=== PATIENT | female | born 1980 | race African-American/Black ===

== ENCOUNTER 2019-11-24 02:14 | Emergency (ER) | payer OTHER, SELFPAY ==
[2019-11-24 02:19] VITALS: BP 138/88; PULSE 87; RESP 20; TEMP 36.7; O2SAT 100
[2019-11-24 03:02] LABS: Basophils Percent Auto 0.5 % (0.2-1.2); Eosinophils Percent Auto 0.5 % (0-4.4); Hematocrit 40.2 % (37.0-47.0); Hemoglobin 12.6 g/dL (12.0-15.0); Immature Granulocyte Absolute 0.01 K/mm3 (0.00-0.031); Immature Granulocyte Percent A 0.2 % (0-0.5); Lymphocytes Percent Auto 31.8 % (18.3-44.2); Mean Corpuscular HGB Conc 31.3 g/dl (32-36); Mean Corpuscular Hemoglobin 26.9 pg (26-34); Mean Corpuscular Volume 85.9 fl (80-100); Mean Platelet Volume 10.8 fl (7.4-10.4); Monocytes Absolute Auto 0.5 K/mm3 (0.1-0.6); Monocytes Percent Auto 7.7 % (2.6-8.5); Neutrophils Absolute Auto 3.5 K/mm3 (1.3-6.7); Neutrophils Percent Auto 59.3 % (45.5-73.1); Platelet Count Result 237 k/mm3 (150-375); Red Blood Count 4.68 M/mm3 (4.2-5.4); Red Cell Distribution Width 14.4 % (11.5-14.5)
[2019-11-24 03:08] LABS: Add Urine Microscopic? YES; Appearance Urine Clear (Clear); Bacteria Urine Trace /hpf; Bilirubin Urine Negative (Negative); Blood Urine Negative (Negative); Color Urine Yellow (Yellow); Glucose Urine UA Negative (Negative); Ketones Urine 1+ mg/dL (Negative); Leukocyte Esterase Ur Trace LEU/UL (Negative); Mucus Urine Heavy /lpf; Nitrate Urine Negative (Negative); Protein Urine Negative (Negative); RBC Urine 0-2 /hpf (0-2); Squamous Epithelial Cell Urine Many /hpf (Few); Urobilinogen Urine Negative mg/dL (<2.0); WBC Urine 0-3 /hpf
[2019-11-24 03:14] LABS: Alanine Aminotransferase 14 U/L (4-35); Albumin Level 4.5 g/dL (3.5-5.1); Alkaline Phosphatase 64 U/L (38-126); Aspartate Amino Transferase 22 U/L (14-36); Blood Urea Nitrogen 4 mg/dL (7-17); Calcium 9.5 mg/dL (8.4-10.2); Carbon Dioxide 28 mmol/L (22-30); Chloride 101 mmol/L (98-107); Estimated CRCL calculation 118 ml/min; Estimated Glomerular Filt Rate > 60; Glucose 87 mg/dL (65-105); Lipase 58 U/L (23-300); Potassium 3.5 mmol/L (3.4-5.0); Sodium 137 mmol/L (137-145)
--- NOTE | 2019-11-24 03:23 | ED.NAVMDI ---
HPI - Nausea/Vomiting/Diarrhea General Chief complaint: Abdominal Pain Stated complaint: n/v Source: patient Mode of arrival: ambulatory Limitations: no limitations History of Present Illness HPI Narrative: Patient is a 39-year-old female who presents to the emergency department with complaint of nausea and vomiting. 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 Patient was prescribed tetracycline and Flagyl as well as a proton pump inhibitor. Patient states her heart rate goes up when she takes the antibiotics and she has had nausea and vomiting and unable to keep down food and has not been able to take her antibiotics. Patient is complaining of abdominal and back pain as well. MD elicited complaint: nausea and vomiting Onset (ago): day(s) Related Data Allergies Allergy/AdvReac Type Severity Reaction Status Date / Time metoclopramide [From Reglan] Allergy Intermediate Anxiety Verified 11/24/19 02:27 acetaminophen [From [place]] AdvReac Intermediate Nausea Verified 11/24/19 02:27 hydrocodone [From [place]] AdvReac Intermediate Nausea Verified 11/24/19 02:27 Review of Systems Review of Systems: All systems reviewed & are unremarkable except as noted in HPI and below Gastrointestinal: Gastrointestinal: Reports abdominal pain, Reports nausea and Reports vomiting PMFSH Past Medical History Medical History (Updated 11/24/19 @ 05:05 by Cristina Corona MD) GERD (gastroesophageal reflux disease) Helicobacter pylori (H. pylori) Surgical History Surgical History (Updated 11/24/19 @ 03:25 by Cristina Corona MD) History of esophagogastroduodenoscopy (EGD) Social History Social History (Updated 11/24/19 @ 03:25 by Cristina Corona MD) Smoking status: Never smoker Alcohol intake: never Exam Const: General: cooperative, no acute distress and alert Nutritional Appearance: well nourished Orientation/consciousness: patient oriented x3 Limitations: no limitations Resp: Effort & Inspection: normal respiratory effort Auscultation: clear to auscultation bilaterally Cardio: Rate: regular rate Rhythm: regular rhythm GI: GI Palp: Yes Soft to palpation and No Tenderness to palpation present (GI) Auscultation: normal bowel sounds Skin: General skin exam: normal color Neuro: General: patient oriented x3 Cognition (Neuro): normal cognition Speech: normal speech Extrem: General: normal to inspection, full ROM and no clubbing, cyanosis or edema Psych: Mental Status: mental status grossly normal Affect: normal affect Attitude: cooperative Course Course Emergency Course: Patient labs fairly unremarkable. Nothing to suggest severe dehydration at this time. Vital signs stable. Patient feeling better after fluids and medications. Patient only complaining of bloating on reevaluation. Will prescribe GI medications for symptom management. Advised GI follow-up. Vital Signs Vital signs: Vital Signs Temperature 98.0 F 11/24/19 02:19 Pulse Rate 87 11/24/19 02:19 Respiratory Rate 11/24/19 02:19 Blood Pressure 138/88 11/24/19 02:19 Pulse Oximetry 100 11/24/19 02:19 Temperature 98.0 F 11/24/19 02:19 Pulse Rate 79 11/24/19 03:31 Respiratory Rate 11/24/19 02:19 Blood Pressure 134/95 H 11/24/19 03:31 Pulse Oximetry 100 11/24/19 02:19 MDM - Nausea/Vomiting/Diarrhea Lab Data Attestation: I reviewed the patient's lab results. Result diagrams: 11/24/19 02:55 11/24/19 02:55 Labs: Lab Results 11/24/19 11/24/19 11/24/19 Range/Units 02:55 02:55 02:55 WBC 6.0 (4.5-10.0) K/mm3 RBC 4.68 (4.2-5.4) M/mm3 Hgb 12.6 (12.0-15.0) g/dL Hct 40.2 (37.0-47.0) % MCV 85.9 (80-100) fl MCH 26.9 (26-34) pg MCHC 31.3 L (32-36) g/dl RDW 14.4 (11.5-14.5) % Plt Count 237 (150-375) k/mm3 MPV 10.8 H (7.4-10.4) fl Immature Gran % (Auto) 0.2 (0-0.5)
[2019-11-24 03:31] VITALS: BP 129/89; BP 131/98; BP 134/95; PULSE 74; PULSE 78; PULSE 79
[2019-11-24] MEDS: LACTATED RINGERS 1,000 ML 999 ML IV CONT (03:34)
[2019-11-24] MEDS: PANTOPRAZOLE SODIUM IV 40 MG VIAL IV PUSH (03:35)
[2019-11-24] MEDS: ONDANSETRON INJ 4 MG/2 ML VIAL IV PUSH (03:35)
[2019-11-24 05:32] VITALS: BP 136/98; PULSE 74; RESP 18; O2SAT 100
== END 2019-11-24 05:34 | disposition home or self-care (01) ==
PROVIDERS: Emergency Provider Emergency Medicine
DX: R11.2 Nausea with vomiting, unspecified (principal); R10.13 Epigastric pain; K21.9 Gastro-esophageal reflux disease without esophagitis
CPT/HCPCS: 36415; 80053; 81001; 81025; 83690; 85025; 96361; 96374; 96375; 99284; A9270; C9113; J2405; J7120

== ENCOUNTER 2020-02-10 12:40 | Emergency (ER) | payer OTHER, SELFPAY ==
--- NOTE | ~2020-02-10 | CT_ITS ---
EXAMINATION: CT abdomen pelvis w con INDICATION: Epigastric abdominal pain TECHNIQUE: Computed tomographic images of the abdomen and pelvis were obtained after the administrati on of 100 cc of Omnipaque 350 intravenous contrast. The dose-length product (DLP) was 235.92 mGy-cm. Automated exposure control and iterative reconstruction technique were employed. COMPARISON: None available FINDINGS: The lung bases are clear. The heart size is normal. Bilateral breast implants are noted. He terogeneous enhancement of the liver likely related to phase of contrast. There is a 3.9 x 3.1 cm hyp erenhancing mass of liver segment V which appears to contain central hypodensity. The spleen, pancrea s, gallbladder, and adrenal glands are normal. The kidneys are unremarkable. No pathologically enlarg ed abdominal or pelvic lymph nodes are identified. There is no free intraperitoneal gas or evidence o f bowel obstruction. The appendix is normal. There is widespread nodular soft tissue density involvin g the bilateral gluteal subcutaneous tissues, likely inflammation or scarring. IMPRESSION: 1. No CT correlate for the patient's symptoms. 2. Hyperenhancing mass of the right hepatic lobe which is likely benign in the absence of known malig douglas, possibly reflecting focal nodular hyperplasia or adenoma. Recommend correlation with any prior outside hospital imaging. If none is available, follow-up by CT or MRI without and with contrast in six months is recommended. Reviewed, dictated and finalized at location A. IMPRESSION: 1. No CT correlate for the patient's symptoms. 2. Hyperenhancing mass of the right hepatic lobe which is likely benign in the absence of known malignancy, possibly reflecting focal nodular hyperplasia or a denoma. Recommend correlation with any prior outside hospital imaging. If none is available, follow-up by CT or MRI without and with contrast in six months is recommended.
[2020-02-10 12:46] VITALS: BP 111/79; PULSE 76; RESP 15; TEMP 36.9; O2SAT 99
[2020-02-10 13:09] LABS: Basophils Percent Auto 0.7 % (0.2-1.2); Eosinophils Percent Auto 1.1 % (0-4.4); Hematocrit 34.6 % (37.0-47.0); Hemoglobin 11.1 g/dL (12.0-15.0); Lymphocytes Absolute Auto 1.34 K/mm3 (0.9-3.2); Lymphocytes Percent Auto 47.9 % (18.3-44.2); Mean Corpuscular HGB Conc 32.1 g/dl (32-36); Mean Corpuscular Hemoglobin 27.5 pg (26-34); Mean Corpuscular Volume 85.6 fl (80-100); Mean Platelet Volume 10.4 fl (7.4-10.4); Monocytes Absolute Auto 0.2 K/mm3 (0.1-0.6); Monocytes Percent Auto 8.6 % (2.6-8.5); Neutrophils Absolute Auto 1.2 K/mm3 (1.3-6.7); Neutrophils Percent Auto 41.7 % (45.5-73.1); Platelet Count Result 190 k/mm3 (150-375); Red Blood Count 4.04 M/mm3 (4.2-5.4); Red Cell Distribution Width 13.6 % (11.5-14.5); White Blood Count 2.8 K/mm3 (4.5-10.0)
[2020-02-10 13:17] LABS: Potassium 3.5 mmol/L (3.4-5.0)
[2020-02-10 13:20] LABS: Ethanol < 10 mg/dL (<10)
[2020-02-10 13:21] LABS: Alanine Aminotransferase 16 U/L (4-35); Albumin Level 3.5 g/dL (3.5-5.1); Alkaline Phosphatase 44 U/L (38-126); Aspartate Amino Transferase 18 U/L (14-36); Bilirubin,Total 1.1 mg/dL (0.2-1.3); Blood Urea Nitrogen 10 mg/dL (7-17); Calcium 8.9 mg/dL (8.4-10.2); Carbon Dioxide 24 mmol/L (22-30); Chloride 107 mmol/L (98-107); Estimated CRCL calculation 98 ml/min; Estimated Glomerular Filt Rate > 60; Glucose 97 mg/dL (65-105); Lipase 26 U/L (23-300); Sodium 137 mmol/L (137-145)
--- NOTE | 2020-02-10 13:35 | ED.ABDPAIN ---
HPI - Abdominal Pain General Chief Complaint: Abdominal Pain Stated Complaint: nausa/ bloating/ epigastric pain Time Seen by Provider: 02/10/20 13:16 Source: patient History of Present Illness HPI narrative: 39 years old -[place] female complaining of upper abdominal pain for the last 2 months, was seen by her lab aid recently, had EGD which showed gastritis, patient started on Protonix. Patient did not take the prescription of Protonix because it have a lot of side effects. Patient been to many emergency rooms in the last few weeks last one was [place] and started on Nexium which did not start because of the side effects. Currently complaining of epigastric pain, bloating. Patient declined to take Reglan or GI cocktail because make her feel worse. Patient reports having a lot of depression lately and been losing weight. Denies any suicidal or homicidal ideation. Patient had a diagnosis of H. pylori, and was treated recently. Related Data Allergies Allergy/AdvReac Type Severity Reaction Status Date / Time metoclopramide [From Reglan] Allergy Intermediate Anxiety Verified 11/24/19 02:27 acetaminophen [From [place]] AdvReac Intermediate Nausea Verified 11/24/19 02:27 hydrocodone [From [place]] AdvReac Intermediate Nausea Verified 11/24/19 02:27 Review of Systems Review of Systems: Narrative: CONSTITUTIONAL: Denies fever, chills, or sweats. EYES: Denies visual changes, redness, or discharge. ENT: Denies rhinorrhea, congestion, sore throat, or otalgia. CARDIOVASCULAR: Denies chest pain, palpitations, or edema. RESPIRATORY: Denies cough or dyspnea. GASTROINTESTINAL: Denies abdominal pain, nausea, vomiting, or diarrhea. GENITOURINARY: Denies dysuria or hematuria. SKIN: Denies rash or itching. MUSCULOSKELETAL: Denies back pain, joint pain, or myalgia. NEUROLOGIC: Denies headache, numbness, or weakness. PSYCHIATRIC: Denies anxiety or depression. [facility] Past Medical History Medical History GERD (gastroesophageal reflux disease) Helicobacter pylori (H. pylori) Surgical History Surgical History History of esophagogastroduodenoscopy (EGD) Social History Social History Smoking status: Never smoker Alcohol intake: never Gender identity (if verbalized by the patient): Female Exam Narrative: Exam Narrative: General appearance: Well-developed, looks depressed, does not look in pain Skin: Normal color Head: Normocephalic, nontraumatic Eyes: Clear conjunctiva ENT: Oropharynx normal, ears normal, nose normal Neck: Supple, nontender Chest and respiratory: Airway patent, no respiratory distress, no accessory muscle use Heart: Regular rate/rhythm Abdomen: Soft, mild tenderness epigastric area., no organomegaly, quiet bowel sounds Vascular: Normal peripheral pulses, normal capillary refill. Musculoskeletal: Normal range of motion, nontender back Neurologic: Alert and oriented ?3, [employer] is normal as tested, no gross motor deficit Course Course Emergency Course: Stable Reevaluation(s) Reevaluation #1: Currently patient feeling much better, patient was notified about the presence of hepatic mass and the seriousness of early follow-up with her lab aid for further evaluation. Patient received a copy of the CAT scan report at the time of discharge. Vital Signs Vital signs: Vital Signs Temperature 36.9 C 02/10/20 12:46 Pulse Rate 76 02/10/20 12:46 Respiratory Rate 15 02/10/20 12:46 Blood Pressure 111/79 02/10/20 12:46 Pulse Oximetry 99 02/10/20 12:46 Temperatu
[2020-02-10 13:50] LABS: Thyroid Stimulating Hormone 0.591 uIU/mL (0.465-4.680)
[2020-02-10] MEDS: SODIUM CHLORIDE 0.9% IV 1,000 ML 999 ML IV CONT (13:52)
[2020-02-10 14:03] LABS: Add Urine Microscopic? YES; Appearance Urine Clear (Clear); Bacteria Urine Trace /hpf; Bilirubin Urine Negative (Negative); Blood Urine Negative (Negative); Color Urine Yellow (Yellow); Glucose Urine UA Negative (Negative); Ketones Urine Trace mg/dL (Negative); Leukocyte Esterase Ur Trace LEU/UL (Negative); Mucus Urine Heavy /lpf; Nitrate Urine Negative (Negative); Protein Urine Negative (Negative); RBC Urine 0-2 /hpf (0-2); Specific Grav Ur 1.023 (1.001-1.035); Squamous Epithelial Cell Urine Few /hpf (Few); Urobilinogen Urine Negative mg/dL (<2.0); WBC Urine 16-20 /hpf
[2020-02-10 14:55] LABS: Amphetamine Screen Urine Negative (Negative); Barbiturate Screen Urine Negative (Negative); Benzodiazepines Screen Urine Negative (Negative); Cannabinoid Screen Urine Negative (Negative); Cocaine Screen Urine Negative (Negative); Methadone Screen Urine Negative (Negative); Opiate Screen Urine Negative (Negative); Phencyclidine Screen Urine Negative (Negative)
[2020-02-10 15:55] VITALS: BP 107/85; PULSE 99; RESP 18; O2SAT 99
== END 2020-02-10 15:57 | disposition home or self-care (01) ==
PROVIDERS: General Practice; Emergency Provider Emergency Medicine; PCP Family Medicine
DX: R16.0 Hepatomegaly, not elsewhere classified (principal); R10.13 Epigastric pain; K29.70 Gastritis, unspecified, without bleeding; K21.9 Gastro-esophageal reflux disease without esophagitis
CPT/HCPCS: 36415; 74177; 80053; 80307; 81001; 81025; 83690; 84443; 85025; 87086; 87088; 96361; 96374; 99284; J2060; J7030; Q9967

== ENCOUNTER 2020-02-19 16:24 | Emergency (ER) | payer OTHER, SELFPAY ==
--- NOTE | ~2020-02-19 | CT_ITS ---
EXAMINATION: CT abdomen pelvis w con DATE: 02/19/2020 17:50 INDICATION: Chronic epigastric pain TECHNIQUE: Computed tomography (CT) of the abdomen and pelvis was performed with 100 cc Omnipaque 350 intravenous contrast. The dose-length product was 284.33 mGy-cm. Automated exposure control and iter ative reconstruction technique were employed. COMPARISON: CT dated 02/10/2020 FINDINGS: Lung bases are unremarkable. Heart size normal. No significant vascular abnormality. No lym phadenopathy. There is diffuse nodular soft tissue along the posterior gluteal regions. There are lefty ast implants. There is free fluid in the pelvis. There is heterogeneous enhancement of the liver. The re is a hyperenhancing mass of the right hepatic lobe measuring measuring 4.2 cm. Gallbladder is pres ent. Nonobstructive bowel gas pattern. IMPRESSION: 1. Hyperenhancing 4.2 cm right hepatic lobe mass which is likely benign focal nodular hyperplasia or adenoma in the absence of known malignancy. Recommend follow-up CT or MRI without and with contrast i n 6 months to assess stability. 2: Extensive nodular soft tissue in the gluteal regions. Correlate for history of previous injections (i.E. silicone injections). 3: Small amount of free fluid in the abdomen and pelvis, likely physiologic. Reviewed, dictated and finalized at location A. IMPRESSION: 1. Hyperenhancing 4.2 cm right hepatic lobe mass which is likely benign focal n odular hyperplasia or adenoma in the absence of known malignancy. Recommend fol low-up CT or MRI without and with contrast in 6 months to assess stability. 2: Extensive nodular soft tissue in the gluteal regions. Correlate for history of previous injections (i.E. silicone injections). 3: Small amount of free fluid in the abdomen and pelvis, likely physiologic.
[2020-02-19 16:26] VITALS: BP 133/75; PULSE 77; RESP 20; TEMP 36.6; O2SAT 100
[2020-02-19 16:47] LABS: Basophils Percent Auto 0.9 % (0.2-1.2); Eosinophils Percent Auto 1.2 % (0-4.4); Hemoglobin 11.4 g/dL (12.0-15.0); Immature Granulocyte Absolute 0.01 K/mm3 (0.00-0.031); Immature Granulocyte Percent A 0.3 % (0-0.5); Lymphocytes Absolute Auto 1.46 K/mm3 (0.9-3.2); Lymphocytes Percent Auto 42.1 % (18.3-44.2); Mean Corpuscular HGB Conc 31.7 g/dl (32-36); Mean Corpuscular Hemoglobin 27.4 pg (26-34); Mean Corpuscular Volume 86.5 fl (80-100); Mean Platelet Volume 10.9 fl (7.4-10.4); Monocytes Absolute Auto 0.2 K/mm3 (0.1-0.6); Monocytes Percent Auto 6.3 % (2.6-8.5); Neutrophils Absolute Auto 1.7 K/mm3 (1.3-6.7); Neutrophils Percent Auto 49.2 % (45.5-73.1); Platelet Count Result 186 k/mm3 (150-375); Red Blood Count 4.16 M/mm3 (4.2-5.4); Red Cell Distribution Width 13.8 % (11.5-14.5); White Blood Count 3.5 K/mm3 (4.5-10.0)
[2020-02-19] MEDS: SODIUM CHLORIDE 0.9% IV 1,000 ML 999 ML IV CONT (16:48)
[2020-02-19 16:51] LABS: Add Urine Microscopic? YES; Appearance Urine Cloudy (Clear); Bacteria Urine Trace /hpf; Bilirubin Urine Negative (Negative); Blood Urine Negative (Negative); Color Urine Yellow (Yellow); Glucose Urine UA Negative (Negative); Ketones Urine Negative (Negative); Leukocyte Esterase Ur 2+ LEU/UL (Negative); Mucus Urine Heavy /lpf; Nitrate Urine Negative (Negative); Protein Urine Negative (Negative); RBC Urine 0-2 /hpf (0-2); Specific Grav Ur 1.015 (1.001-1.035); Squamous Epithelial Cell Urine Many /hpf (Few); Urobilinogen Urine Negative mg/dL (<2.0); WBC Urine 21-30 /hpf
[2020-02-19 16:57] LABS: Alanine Aminotransferase 19 U/L (4-35); Albumin Level 3.3 g/dL (3.5-5.1); Alkaline Phosphatase 42 U/L (38-126); Anion Gap 9.6 mmol/L (7-16); Aspartate Amino Transferase 23 U/L (14-36); Bilirubin,Total 0.6 mg/dL (0.2-1.3); Blood Urea Nitrogen 5 mg/dL (7-17); Calcium 8.5 mg/dL (8.4-10.2); Carbon Dioxide 27 mmol/L (22-30); Chloride 105 mmol/L (98-107); Estimated CRCL calculation 100 ml/min; Estimated Glomerular Filt Rate > 60; Glucose 100 mg/dL (65-105); Lipase 25 U/L (23-300); Potassium 3.6 mmol/L (3.4-5.0); Sodium 138 mmol/L (137-145)
--- NOTE | 2020-02-19 17:14 | ED.ABDPAIN ---
HPI - Abdominal Pain General Chief Complaint: Abdominal Pain Stated Complaint: Multiple complaints Time Seen by Provider: 02/19/20 16:36 History of Present Illness HPI narrative: Patient presents for chronic gastritis. She says that all the medicines she tried have side effects. She is cutting the [id number] Pepcid in half and taking it only as needed. She said that does not work. She has not tried omeprazole. She has not followed up with her GI doctor. She has a scheduled barium swallow tomorrow. She wants a biopsy on her liver spot. She says she has really severe anxiety which is worse with the belly pain. She has previously seen somebody for that. She does not want to go to a psychiatrist. She does not want psychiatric medicine that she would become addicted to. Clonazepam is on her med list. She asked for something for anxiety here. She says she is losing weight because she cannot eat due to the stomach pain. She said she needs to be on a gluten-free diet so that she can drink milkshake. I explained that milkshakes do not have gluten in them. Gluten comes from flour. She lives alone, but her daughter and baby sometimes come by. 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 She says she is never had a surgery. MD elicited complaint: abdominal pain Pertinent past history: gastritis Onset (ago): month(s) Pain Consistency: constant Location: epigastric Severity: severe Related Data Allergies Allergy/AdvReac Type Severity Reaction Status Date / Time metoclopramide [From Reglan] Allergy Intermediate Anxiety Verified 11/24/19 02:27 acetaminophen [From [place]] AdvReac Intermediate Nausea Verified 11/24/19 02:27 hydrocodone [From [place]] AdvReac Intermediate Nausea Verified 11/24/19 02:27 Review of Systems Review of Systems: Narrative: CONSTITUTIONAL: Denies fever, chills, or sweats. EYES: Denies visual changes, redness, or discharge. ENT: Denies rhinorrhea, congestion, sore throat, or otalgia. CARDIOVASCULAR: Denies chest pain, palpitations, or edema. RESPIRATORY: Denies cough or dyspnea. GASTROINTESTINAL: Epigastric pain, nausea, but not vomiting, or diarrhea. GENITOURINARY: Denies dysuria or hematuria. SKIN: Denies rash or itching. MUSCULOSKELETAL: Denies back pain, joint pain, or myalgia. NEUROLOGIC: Denies headache, numbness, or weakness. PSYCHIATRIC: Severe anxiety. All systems reviewed & are unremarkable except as noted in HPI and below PMFSH Past Medical History Medical History (Updated 02/19/20 @ 17:17 by Melinda Yoo MD) Anxiety GERD (gastroesophageal reflux disease) Helicobacter pylori (H. pylori) Surgical History Surgical History History of esophagogastroduodenoscopy (EGD) Social History Social History Smoking status: Never smoker Alcohol intake: never Gender identity (if verbalized by the patient): Female Exam Narrative: Exam Narrative: GENERAL: Well-appearing, well-nourished, and in no acute distress. Painted on eyebrows, week or extensions. Thin. HEAD: Normocephalic, atraumatic. EYES: PERRLA and EOMI. ENT: Nares clear, no rhinorrhea or epistaxis. Mucous membranes moist. NECK: Supple. CHEST: Clear to auscultation. No respiratory distress. HEART: Regular rate and rhythm. No murmur heard. Normal peripheral pulses. ABDOMEN: Soft, nontender, nondistended, normal active bowel sounds. EXTREMITIES: Normal range of motion. No edema. SKIN: Warm, dry, no rash. NEURO: No focal deficits. Alert and oriented x3. PSYCH: Anxious. Course Vital Signs Vital signs: Vital Signs Temperature 97.8 F 02/19/20 16:26 Pulse Rate 77 02/19/20 16:26 Respiratory Rate 02/19/20 16:26 Blood Pressure 133/75 02/19/20 16:26 Pulse Oximetry 100 02/19/20 16:26 Temperature 97.8 F 02/19/20 16:26 Pulse Rate 77 02/19/20 16:26 Respiratory Rate 02/19/20 16:26 Bloo
[2020-02-19] MEDS: BELLADONNA ALK/PHENOB ELIX 10 ML, MAG HYDROX/ALUMINUM HYD/SIMETH 30 ML, LIDOCAINE HCL 2... PO (17:17)
[2020-02-19 18:23] VITALS: BP 137/78; PULSE 70; RESP 18; O2SAT 99
== END 2020-02-19 18:24 | disposition home or self-care (01) ==
PROVIDERS: Emergency Provider Emergency Medicine
DX: K29.50 Unspecified chronic gastritis without bleeding (principal); F41.9 Anxiety disorder, unspecified
CPT/HCPCS: 36415; 74177; 80053; 81001; 81025; 83690; 85025; 87086; 87088; 96360; 99284; A9270; J7030; Q9967